=== PATIENT | male | born 1940 | race Caucasian/White ===

== ENCOUNTER 2022-08-04 11:09 | Day surgery (SDC) | payer OTHER ==
[~2022-08-04] VITALS: Ht 167.6 cm; Wt 99.6 kg
[~2022-08-04 11:09] MED LIST: DIGOX125 MC1; Hytrin1 MG; INSULANI; JARDIANCE10 MG; METF500C; TAMS.4ER; [UNRECOGNIZED DRUG - CODE]
[2022-08-04] MEDS ORDERED: LANOXIN250 MCG PO (12:18)
[2022-08-04] MEDS ORDERED: ELIQUIS5 M2 PO (12:19)
[2022-08-04] MEDS ORDERED: METO100ER PO (12:20)
[2022-08-04] MEDS ORDERED: ATOR20 PO (12:21)
[2022-08-04] MEDS ORDERED: Hytrin2 MG PO (12:22)
== END 2022-08-04 13:35 | disposition home or self-care (01) ==
LOC: ORSCSDS 11:09
PROVIDERS: Ophthalmology
PROC: 08DJ3ZZ Extraction of Right Lens, Percutaneous Approach (ICD-10-PCS; principal; 2022-08-04 12:30)
DX: E11.36 Type 2 diabetes mellitus with diabetic cataract (principal); H25.11 Age-related nuclear cataract, right eye; H21.81 Floppy iris syndrome; I10 Essential (primary) hypertension; E78.5 Hyperlipidemia, unspecified; E66.9 Obesity, unspecified; Z68.35 Body mass index [BMI] 35.0-35.9, adult; Z79.4 Long term (current) use of insulin; Z79.01 Long term (current) use of anticoagulants; Z79.84 Long term (current) use of oral hypoglycemic drugs; Z79.899 Other long term (current) drug therapy
CPT/HCPCS: 82947; J2001; J2250; J3010; J3301; J7040; V2632

== ENCOUNTER 2024-03-11 11:46 | Observation (INO) | payer OTHER ==
[~2024-03-11] VITALS: Ht 167.6 cm; Wt 90.3 kg
[~2024-03-11 11:46] MED LIST changes: +ATOR20 PO; +ELIQUIS5 M2 PO; +Hytrin2 MG PO; -INSULANI; +INSULANI SC; +LANOXIN250 MCG PO; -METF500C; +METF500C PO; -TAMS.4ER; +TAMS.4ER PO; +TOPROL XL200 MG PO
[2024-03-11 12:33] LABS: Source, Urine Clean Catch
[2024-03-11 12:41] LABS: BASOPHILS ABSOLUTE AUTO 0.03 K/mm3 (0.00-0.23); BASOPHILS PERCENT AUTO 0 % (0-2); EOSINOPHILS ABSOLUTE AUTO 0.16 K/mm3 (0.00-0.68); EOSINOPHILS PERCENT AUTO 2 % (0-6); Hematocrit 45.6 % (37.0-53.0); Hemoglobin 15.5 g/dL (13.5-17.5); IMMATURE GRAN ABSOLUTE AUTO 0.09 K/mm3 (0.00-0.10); IMMATURE GRAN PERCENT AUTO 1 % (0-1); LYMPHOCYTES ABSOLUTE AUTO 2.18 K/mm3 (0.84-5.20); LYMPHOCYTES PERCENT AUTO 30 % (21-46); MONOCYTES ABSOLUTE AUTO 0.72 K/mm3 (0.16-1.47); MONOCYTES PERCENT AUTO 10 % (4-13); Mean Corpuscular HGB 30.9 pg (26.0-34.0); Mean Corpuscular Volume 91 fL (80-100); Mean Platelet Volume 11.4 fL (9.1-12.4); NEUTROPHILS PERCENT AUTO 56 % (41-73); Platelet Count 146 K/mm3 (150-400); RDW Coefficient Variation 12.9 % (11.7-14.2); RDW Standard Deviation 42.4 fL (35.1-46.3); Red Blood Cell Count 5.01 M/mm3 (4.30-5.90); White Blood Cell Count 7.28 K/mm3 (4.00-11.30)
[2024-03-11 12:43] LABS: Appearance, Urine Clear (Clear); Bilirubin, Urine Neg (Neg); Blood, Urine Neg (Neg); Color, Urine Yellow (P-Yellow); Glucose Qualitative, Urine 4+ (Neg); Ketones, Urine Neg (Neg); Leukocyte Esterase, Urine Neg (Neg); Nitrite, Urine Neg (Neg); Protein, Urine Neg (Neg); Urobilinogen, Urine NORM (Normal)
[2024-03-11] MEDS ORDERED: MELA3 PO (12:44)
[2024-03-11] MEDS ORDERED: JARDIANCE25 MG PO (12:45)
[2024-03-11] MEDS ORDERED: THERA-D2000 UNIT PO (12:45)
[2024-03-11 13:10] LABS: Albumin, Blood 3.4 g/dL (3.4-5.0); Albumin/Globulin Ratio 0.9 (0.8-1.8); Bilirubin, Total 1.2 mg/dL (0.1-1.0); Bun/Creatinine Ratio 22.5 (12.0-20.0); Calcium, Blood 9.6 mg/dL (8.5-10.1); Creatinine, Blood 0.85 mg/dL (0.60-1.20); Globulin, Blood 3.6 g/dL (2.2-4.0); Magnesium, Blood 2.3 mg/dL (1.6-2.4); Potassium, Blood 3.9 mmol/L (3.5-5.5)
[2024-03-11 13:47] LABS: International Normalized Ratio 1.09; Prothrombin Time Results 11.6 Sec (9.7-11.5)
[2024-03-11] MEDS ORDERED: FLU VACC TS2024-25(6MOS UP)/PF 45 MCG/0.5 ML SYRINGE IM ONE (15:45)
[2024-03-11] MEDS ORDERED: Digoxin 0.25 MG Tab PO SCH (16:00)
--- NOTE | 2024-03-11 18:53 | NUR ---
PT ARRIVED TO ROOM AT 1850 VIA CART. PT AO AND COOPERATIVE OF CARE. PT WAS ABLE TO STAND TURN AND PIVOT TO BED, BUT WAS SLIGHTLY UNSTEADY. SON WAS IN ROOM WITH HIM. PT ORIENTED TO CALL LIGHT AND INSTRUCTED TO NOT TRY AND WALK WITHOUT ASSISTANCE. PT SITTING AT SIDE OF BED EATING DINNER BROUGHT UP WITH HIM. WILL CONTINUE TO MONITOR.
[2024-03-11 19:51] VITALS: BP 138/81
[2024-03-11] MEDS ORDERED: Atorvastatin 10 MG Tab PO SCH (21:00)
[2024-03-11] MEDS ORDERED: Apixaban 5 MG Tab PO SCH (21:00)
[2024-03-11] MEDS ORDERED: Melatonin 3 MG Tab PO SCH (21:00)
[2024-03-11] MEDS ORDERED: Metoprolol Succinate 50 MG TABCR PO SCH (21:00)
[2024-03-11] MEDS ORDERED: Insulin Glargine-Yfgn 100 Unit/mL 3 ML SYR SC SCH (21:30)
[2024-03-12 02:34] VITALS: BP 111/69
--- NOTE | 2024-03-12 03:30 | NUR ---
TELE ALERTED RN THAT PT REMAINS AFIB BUT HAS TRENDED DOWN TO HR 30'S BPM AT TIMES. PT AWOKE TO DENY S/S CARDIAC DISTRESS AND BP IS WNL. MADE AWARE AND HE DECREASED DOSE OF PO TOPROL XL TO 100MG AT BEDTIME (WAS PREVIOUSLY 200MG).
--- NOTE | 2024-03-12 06:10 | NUR ---
SUMMARY: PT A/OX4 AND IS MILDLY FORGETFUL AT TIMES BUT CALLS APPROPRIATELLY TO SPECIFY NEEDS AND IS PLEASANT AND COOPERATIVE W/CARE. BED ALARM ON FOR FALL RISK AND POSSIBLE IMPULSIVITY. R.SIDE WEAKNESS W/SLIGHTYLY LIMITED ROM PERSISTS BUT STRENGTH AND COORDINATION ARE GRADUALLY IMPROVING. HE'S UP W/SBA AND FWW TO TOILET AND REPOSITIONS SELF AD DANIELITO. PT USES URINAL AT EOB W/O DIFFICULTY. MRI COMPLETED TONIGHT AND PT REMAINS IN AFIB ON TELE. HR OCC. TRENDED DOWN TO 30'S W/MD MADE AWARE AND TOPROL XL DOSE DECREASED PER EMAR. NO S/S CARDIAC DISTRESS. VSS/AFEBRILE, NO ACUTE CHANGES. WCTM/REPORT TO DAY RN.
[2024-03-12 06:11] LABS: LDL/HDL RATIO 1.6
[2024-03-12 06:22] LABS: CHOL/HDL RATIO 3.5; Cholesterol 110 mg/dL (50-200); Digoxin (Lanoxin) 0.97 ug/mL (0.80-2.00); HDL Cholesterol 31 mg/dL (>39); Low Density Lipoprotein Chol 48 mg/dL (0-110); Triglycerides 154 mg/dL (30-160); Very Low Density Lipoprot Chol 30 mg/dL (6-32)
[2024-03-12 07:31] VITALS: BP 130/81
[2024-03-12] MEDS ORDERED: Insulin Glargine-Yfgn 100 Unit/mL 3 ML SYR SC SCH (09:00)
[2024-03-12] MEDS ORDERED: Tamsulosin HCl 0.4 MG Cap PO SCH (09:00)
[2024-03-12] MEDS ORDERED: Empagliflozin 25 MG TAB PO SCH (09:00)
[2024-03-12] MEDS ORDERED: Cholecalciferol 1000 Unit Tablet (=25MCG) PO SCH (09:00)
--- NOTE | 2024-03-12 12:55 | NUR ---
THIS NURSE WAS NOTIFIED BY TELE THAT PT HAD A 2.9 SEC PAUSE AT 1013 AND A 2.6 SEC PAUSE AT 0628. PT ASYMPTOMATIC AT BOTH PAUSES. THIS NURSE CALLED TO NOTIFY AND NEW ORDERS WERE GIVEN.
[2024-03-12 15:03] VITALS: BP 116/67
--- NOTE | 2024-03-12 17:40 | NUR ---
SHIFT SUMMARY PT A&OX4, VSS, AMB W/ 1P ASSIST, TOLERATING PO, VOIDING, AND DENIED PAIN. PT HAS MINIMAL R SIDED WEAKNESS AND LIMITED ROM, BUT STATES THAT IT HAS IMPROVED. PT WORKED W/ PHYSICAL THERAPY AND TOLERATED IT WELL. PT HAD XRAY THIS SHIFT, RESULTS PENDING. NO OTHER ACUTE CHANGES. CALL LIGHT WITHIN REACH AND PT ABLE TO MAKE NEEDS KNOWN.
[2024-03-12] MEDS ORDERED: Metoprolol Succinate 25 MG TABCR PO SCH (21:00)
[2024-03-12] MEDS ORDERED: Metoprolol Succinate 50 MG TABCR PO SCH (21:00)
[2024-03-12 21:45] VITALS: BP 136/76
[2024-03-13 05:50] VITALS: BP 134/81
--- NOTE | 2024-03-13 06:30 | NUR ---
SUMMARY: PT A/OX4 AND IS AK CHIN BUT SPECIFIES NEEDS AND IS PLEASANT AND COOPERATIVE W/CARE. HE'S UP W/1PA AND FWW IN ROOM AND USES URINAL AT EOB AD DANIELITO. STRENGTH IS TO R.SIDE BUT HE CONT'S TO HAVE DECREASED ROM TO R.SHOULDER AND HIP. HE'S BEEN AFIB AT 50'S-90'S BPM BUT HIT 40 BPM ONCE TONIGHT FOR A COUPLE SECONDS BEFORE RETURNING TO 6O'S BPM. PT DENIED CP/PRESSURE AND NEURO OBS STABLE. VSS/AFEBRILE, NO ACUTE CHANGES. WCTM AND REPORT TO DAY RN.
[2024-03-13 08:32] VITALS: BP 126/71
[2024-03-13 11:24] VITALS: BP 145/81
[2024-03-13] MEDS ORDERED: ASPI81CH PO (12:06)
[2024-03-13] MEDS ORDERED: METO25ER PO (12:06)
--- NOTE | 2024-03-13 14:20 | NUR ---
DISCHARGE NOTE- PT WAS GIVEN VERBAL AND WRITTEN DISCHARGE INSTRUCTIONS AND ACKNOWLEDGED UNDERSTANDING OF THEM. FAMILY PRESENT FOR THYE DISCHARE TEACHING. IV AND TELE DC'D PRIOR TO DISCHARGE. PT ESCORTED OUT VIA WC BY DISCHARGE VOLUNTEER, NO S&S OF DISTRESS NOTED AT THE TIME OF DISCHARGE.
== END 2024-03-13 13:33 | disposition home health service (06) ==
LOC: ER 11:46 → MEDS 11:47 → ERHOLD 11:47 → MEDS 18:39
PROVIDERS: Emergency Medicine; ADMIT Internal Medicine
DX: G45.9 Transient cerebral ischemic attack, unspecified (principal); I48.91 Unspecified atrial fibrillation; E11.9 Type 2 diabetes mellitus without complications; M19.90 Unspecified osteoarthritis, unspecified site; E78.5 Hyperlipidemia, unspecified; G47.33 Obstructive sleep apnea (adult) (pediatric); Z79.4 Long term (current) use of insulin; Z79.01 Long term (current) use of anticoagulants; Z79.84 Long term (current) use of oral hypoglycemic drugs; Z79.899 Other long term (current) drug therapy
CPT/HCPCS: 36415; 70450; 70551; 71046; 73502; 80053; 80061; 80162; 81003; 82947; 83735; 83880; 85025; 85610; 93005; 93010; 93306; 93880; 97110; 97112; 97116; 97162; 99285-25; A9270; G0378; J1815